=== PATIENT | male | born 2000 | race Hispanic/Latino ===

== ENCOUNTER 2020-11-10 18:33 | Emergency (ER) | payer OTHER ==
[~2020-11-10] VITALS: Ht 170.2 cm; Wt 80.7 kg
[2020-11-10] MEDS ORDERED: KETOROLAC TROMETHAMINE 30 MG/ML VIAL IV STA (19:48)
[2020-11-10] MEDS ORDERED: FAMOTIDINE 20 MG/2 ML VIAL IV STA (19:48)
[2020-11-10] MEDS ORDERED: SODIUM CHLORIDE 0.9% 1000ML 1,000 ML IV SCH (20:00)
[2020-11-10] MEDS ORDERED: IOPAMIDOL 370 MG/ML 200 ML INFUS..BTL INJ ONE (21:22)
[2020-11-10] MEDS ORDERED: SODIUM CHLORIDE 0.9% 50ML 50 ML ONE (21:22)
[2020-11-10] MEDS ORDERED: FAMOTIDINE 20 MG/2 ML VIAL IV ONE (21:41)
[2020-11-10] MEDS ORDERED: SODIUM CHLORIDE 0.9% 1000ML 1,000 ML ONE (21:41)
[2020-11-10] MEDS ORDERED: KETOROLAC TROMETHAMINE 30 MG/ML VIAL ONE (21:41)
[2020-11-10] MEDS ORDERED: NAPROSYN500 MG PO (23:07)
[2020-11-10 23:20] VITALS: BP 139/76
== END 2020-11-10 23:20 | disposition home or self-care (01) ==
LOC: FSED 19:05
DX: R10.31 Right lower quadrant pain (principal); M79.18 Myalgia, other site; R53.81 Other malaise; F17.210 Nicotine dependence, cigarettes, uncomplicated
CPT/HCPCS: 74177; 80048; 80076; 81003; 85025; 99284; J1885; J7030; Q9967